=== PATIENT | female | born 1995 | race Caucasian/White ===

== ENCOUNTER 2018-06-16 14:12 | Emergency (ER) | payer OTHER ==
[2018-06-16 14:27] VITALS: BP 113/78; PULSE 82; TEMP 98.5; BMI 31.4
[2018-06-16] MEDS ORDERED: ONDANSETRON 4 MG/2 ML VIAL IVPUSH ONE (14:40)
[2018-06-16] MEDS ORDERED: ACETAMINOPHEN 1000 MG/100 ML VIAL (NON FORMULARY) IVPB ONE (14:40)
[2018-06-16] MEDS ORDERED: DICYCLOMINE HCL 20 MG TABLET PO ONE (14:40)
[2018-06-16] MEDS ORDERED: FAMOTIDINE 20 MG/50 ML IVPB 20 MG/50 ML MG IVPB ONE ×2 (14:40→15:44)
[2018-06-16] MEDS ORDERED: SODIUM CHLORIDE 1,000 ML IV STA (14:40)
[2018-06-16] MEDS ORDERED: MAG HYDROX/AL HYDROX/SIMETH 30 ML UNIT-DOSE CUP PO ONE (14:41)
--- NOTE | 2018-06-16 14:46 | PDOC ---
History of Present Illness - General Chief Complaint: Nausea Stated Complaint: NAUSEA Time Seen by Provider: 06/16/18 14:24 History Source: Patient Exam Limitations: No Limitations - History of Present Illness Initial Comments: 06/16/18 15:45 Amadou 22 YOF with occasional cannibis use, presenting with epigastric abdominal pain, nausea x 5 days, beginning last week. No suspicious food intake or travel. Initially with vomiting and diarrhea x 1 day, since resolved. No fevers or chills, cp or sob, urinary sx. Currently on menses, no abnormal bleeding or discharge. +decreased appetite during these last several days. Initially went to urgent care center where preg test and lab work wnl, rxd zofran which she has not been taking for her symptoms. No etoh use. No recent drug use. Past History - Travel Traveled outside of the country in the last 30 days: No Close contact w/someone who was outside of country & ill: No - Past Medical History Allergies/Adverse Reactions: Allergies Allergy/AdvReac Type Severity Reaction Status Date / Time No Known Allergies Allergy Verified 06/16/18 14:15 Home Medications: Ambulatory Orders Famotidine [Pepcid -] 20 mg PO BID #14 tablet 06/16/18 Ondansetron HCl [Zofran] 4 mg PO ASDIR 06/16/18 COPD: No - Suicide/Smoking/Psychosocial Hx Smoking History: Never smoked Have you smoked in the past 12 months: No Information on smoking cessation initiated: No Hx Alcohol Use: No Drug/Substance Use Hx: No Substance Use Type: None Review of Systems - Review of Systems Able to Perform ROS?: Yes Comments:: 06/16/18 15:49 GENERAL/CONSTITUTIONAL: No fever or chills. No weakness. no sweats. +decreased appetite. HEAD, EYES, EARS, NOSE AND THROAT: No change in vision or hearing. No ear pain or discharge. No sore throat or mouth pain. No difficulty swallowing.. No congestion. CARDIOVASCULAR: No chest pain or palpitations RESPIRATORY: No SOB, cough GASTROINTESTINAL +nausea, +abdominal pain. no vomiting.. No diarrhea or constipation. No bloody stools. GENITOURINARY: No hematuria, dysuria, frequency, urgency or other changes. +VB from menses MUSCULOSKELETAL: No joint or muscle swelling or pain. No neck or back pain. SKIN: No rash or changes in skin color or lesions. NEUROLOGIC: No headache, vertigo, loss of consciousness, or change in strength/ sensation. No gait instability. HEMATOLOGIC/LYMPHATIC: No anemia, easy bruising/bleeding, or history of blood clots. ALLERGIC/IMMUNOLOGIC: No allergies All other systems reviewed and negative, or as documented in HPI. *Physical Exam - Vital Signs Last Vital Signs Temp Pulse Resp BP Pulse Ox 98.5 F 82 18 113/78 98 06/16/18 14:12 06/16/18 14:12 06/16/18 14:12 06/16/18 14:12 06/16/18 14:12 - Physical Exam Comments: 06/16/18 15:50 General: Well appearing, awake and alert, NAD. HEENT: NCAT, PERRL, EOMI, clear conjunctiva, anicteric, moist mucus membranes, clear oropharynx, no oral lesions.. Neck: neck supple, FROM Resp: CTAB, normal and even respirations, no respiratory distress CVS: RRR, 2+ peripheral pulses throughout, no peripheral edema Abdomen: soft, nondistended, +epigastric tenderness, no Mascot, but +RUQ tenderness mildly to palpation. no rebound or guarding Back: nontender, normal inspection and ROM. No CVAT. MSK: no edema, GUNTER x4, ROM intact. No clubbing or cyanosis. normal bulk and tone. Neuro: alert, oriented appropriately; no focal neurologic deficits. SILT, 5/5 distal and prox strength in all extrem. speech clear. Skin: warm and well perfused, cap refill <2 sec, normal color ED Treatment Course - LABORATORY CBC & Chemistry Diagram: 06/16/18 15:45 06/16/18 15:45 - RADIOLOGY Radiology Studies Ordered: Category Date Time Status GALLBLADDER US [US] Stat Ultrasound 06/16/18 14:41 Ordered Medical Decision Making - Medical Decision Making 06/16/18 17:21 22 YOF with epigastric abdominal pain and nausea x 5 days. Vital signs wnl. Afebrile. DDx abdominal pain: GERD, PUD, esophageal spasm, pancreatitis, hepatitis, constipation, colitis, choledocholithiasis, cholecystitis, biliary colic, symptomatic cholelithiasis, menstrual pain, viral syndrome, Clinically doubt: hernia, appendicitis, diverticulitis - as no lower quadrant tenderness or rebound. Also doubt UTI, currently on menses, but no urinary sx to suggest. also doubt pelvic pathology or ovarian torsion, as no pelvic tenderness or sx. Interventions here included: IVF, pepcid, tylenol, zofran. labs and lytes wnl, lipase still pending. RUQ US: cholelithiasis w/o acute cholecystitis, fatty liver disease, otherwise unremarkable. - on clinical reeval, feels much improved. s/p treatment above. Pt informed of my clinical impression, treatment recommendations and disposition plan. All questions answered to patient's satisfaction and she expressed understanding and comfort with this. Reasons for returning to the ED sooner discussed with the patient otherwise, follow up with her primary care physician. At the time of discharge, the patient is alert, improved, tolerating po and understands instructions. encouraged to take her rx'd zofran as needed for nausea and keep up with hydration with this weather. rx pepcid bid, also OTC available. GI and surgery follow up provided for abd pain and gallstones. 06/16/18 17:24 06/16/18 17:26 06/16/18 17:54 *DC/Admit/Observation/Transfer Diagnosis at time of Disposition: Abdominal pain Qualifiers: Abdominal location: upper abdomen, unspecified Qualified Code(s): R10.10 - Upper abdominal pain, unspecified - Discharge Dispostion Disposition: HOME Condition at time of disposition: Improved Decision to Admit order: No - Prescriptions Prescriptions: Famotidine [Pepcid -] 20 mg PO BID #14 tablet - Referrals Referrals: Vladimir Sarmiento MD [Primary Care Provider] - Kym Martin MD [Staff Physician] - Haider Pan MD [Staff Physician] - - Patient Instructions Printed Discharge Instructions: DI for Abdominal Pain-Adult Additional Instructions: Your laboratory / imaging results were normal, fatty liver and gallstones noted , but no infection. 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 avoid triggers such as fatty or spicy foods; start with liquids and soups/ electrolyte solution and advance as tolerated. Return if worsening symptoms including fevers, headache, vomiting, visual or hearing disturbances, abdominal pain, chest pain, shortness of breath, syncope, dehydration, inability to take things by mouth/vomiting, altered mental status, or worsening concerning symptoms. your medications on discharge include_ side effects may include upset stomach, abdominal pain, vomiting, or diarrhea. do not drink alcohol with your medications. - Post Discharge Activity
[2018-06-16] MEDS ORDERED: DICYCLOMINE HCL 10 MG CAPSULE ONE (14:52)
[2018-06-16] MEDS ORDERED: ACETAMINOPHEN INJECTION 100 ML IVPB ONE (14:52)
[2018-06-16] MEDS ORDERED: ONDANSETRON 4 MG/2 ML VIAL ONE (14:52)
[2018-06-16] MEDS ORDERED: MAG HYDROX/AL HYDROX/SIMETH 30 ML UNIT-DOSE CUP ONE (14:53)
[2018-06-16 16:18] LABS: ALBUMIN 4.5 g/dl (3.5-5.0); ALK PHOS 65 U/L (32-92); ANION GAP 10 (8-16); BASO % 0.3 % (0-2.0); BLOOD UREA NITROGEN 15 mg/dl (7-18); CALCIUM 9.1 mg/dl (8.4-10.2); CHLORIDE 101 mmol/L (98-107); CO2 20 mmol/L (22-28); CREATININE 0.7 mg/dl (0.6-1.3); EOS % 0.2 % (0-4.5); GLUCOSE,RANDOM 75 mg/dl (74-106); HEMATOCRIT 42.2 % (32.4-45.2); HEMOGLOBIN 14.3 GM/dl (10.7-15.3); LYMPH % 23.2 % (8-40); MCH 28.4 pg (25.7-33.7); MCHC 33.8 g/dl (32.0-36.0); MEAN CELL VOLUME 83.9 fl (80-96); MONO % 4.6 % (3.8-10.2); NEUT % 71.7 % (42.8-82.8); PLATELET COUNT 288 K/MM3 (134-434); POTASSIUM 4.5 mmol/L (3.5-5.1); RBC 5.02 M/mm3 (3.60-5.2); RDW 12.9 % (11.6-15.6); SGOT/AST 32 U/L (10-42); SGPT/ALT 33 U/L (10-40); SODIUM 131 mmol/L (136-145); TOT PROT 8.4 g/dl (6.4-8.3); WHITE BLOOD COUNT 9.4 K/mm3 (4.0-10.8)
[2018-06-16 17:28] LABS: LIPASE 127 U/L (73-393)
== END 2018-06-16 18:15 | disposition home or self-care (01) ==
LOC: SUPCPDRO 14:12 → FER 14:12
PROC: 3E033GC Introduction of Other Therapeutic Substance into Peripheral Vein, Percutaneous Approach (ICD-10-PCS; principal; 2018-06-16)
PROC: 3E0337Z Introduction of Electrolytic and Water Balance Substance into Peripheral Vein, Percutaneous Approach (ICD-10-PCS; 2018-06-16)
PROC: 3E033NZ Introduction of Analgesics, Hypnotics, Sedatives into Peripheral Vein, Percutaneous Approach (ICD-10-PCS; 2018-06-16)
DX: R10.10 Upper abdominal pain, unspecified (principal)
CPT/HCPCS: 36415; 76705-TC; 80053; 83690; 85025; 99283-25; J0131; J7030